=== PATIENT | female | born 1975 | race American Indian/Alaskan Native ===

== ENCOUNTER 2018-08-08 10:35 | Observation (INO) | payer BC, MEDICAID ==
--- NOTE | 2018-08-08 11:19 | Emergency Department Report ---
ED General Adult HPI - General Chief complaint: Recheck/Abnormal Lab/Rx Stated complaint: OFF BALANCE Time Seen by Provider: 08/08/18 10:57 Source: patient Mode of arrival: Wheelchair Limitations: No Limitations - Related Data Allergies Allergy/AdvReac Type Severity Reaction Status Date / Time No Known Allergies Allergy Unverified 08/08/18 10:46 ED Review of Systems ROS: Stated complaint: OFF BALANCE Other details as noted in HPI ED Past Medical Hx - Past Medical History Previous Medical History?: No - Surgical History Past Surgical History?: No - Social History Smoking Status: Never Smoker Substance Use Type: Alcohol ED Physical Exam - General Limitations: No Limitations General appearance: alert, in no apparent distress - Head Head exam: Present: atraumatic, normocephalic - Eye Eye exam: Present: normal appearance, PERRL Pupils: Present: normal accommodation - ENT ENT exam: Present: normal exam, normal orophraynx, mucous membranes moist - Neck Neck exam: Present: normal inspection, full ROM. Absent: lymphadenopathy - Respiratory Respiratory exam: Present: normal lung sounds bilaterally. Absent: respiratory distress - Cardiovascular Cardiovascular Exam: Present: regular rate, normal rhythm. Absent: systolic murmur, diastolic murmur, rubs, gallop - GI/Abdominal GI/Abdominal exam: Present: soft, normal bowel sounds. Absent: distended, tenderness, guarding, rebound, hyperactive bowel sounds, hypoactive bowel so unds, mass, bruit - Extremities Exam Extremities exam: Present: normal inspection, full ROM, normal capillary refill. Absent: pedal edema - Back Exam Back exam: Present: normal inspection - Neurological Exam Neurological exam: Present: alert, oriented X3, CN II-XII intact, normal gait, other (rhomberg neg. ) - Psychiatric Psychiatric exam: Present: normal affect, normal mood - Skin Skin exam: Present: warm, dry, intact, normal color. Absent: rash ED Course Vital Signs 08/08/18 10:46 Temperature 98.6 F Pulse Rate 105 H Respiratory 16 Rate Blood Pressure 148/77 O2 Sat by Pulse 97 Oximetry ED Medical Decision Making - Lab Data Result diagrams: 08/08/18 11:46 Critical care attestation.: If time is entered above; I have spent that time in minutes in the direct care of this critically ill patient, excluding procedure time. ED Disposition Condition: Stable Referrals: PRIMARY CARE, [Primary Care Provider] - 3-5 Days
[2018-08-08 11:55] LABS: Mean Corpuscular HGB Conc 29 % (30-34)
[2018-08-08 12:04] LABS: INR 1.02 (0.87-1.13)
[2018-08-08 12:07] LABS: Eosinophils % (Auto) 0.3 % (0.0-4.3); Monocytes % (Auto) 3.6 % (0.0-7.3); Platelet Count 289 K/mm3 (140-440); Red Blood Count 2.22 M/mm3 (3.65-5.03)
[2018-08-08 12:09] LABS: Hemoglobin 3.8 gm/dl (10.1-14.3); Mean Corpuscular Volume 59 fl (79-97)
[2018-08-08] MEDS ORDERED: NACL 0.9% 500 ML 500 ML IV ONE (12:09)
[2018-08-08 12:18] LABS: Alanine Aminotransferase 9 units/L (7-56); BUN/Creatinine Ratio 23; Blood Urea Nitrogen 14 mg/dL (7-17); Hemolysis Index 31
[2018-08-08 13:16] LABS: Basophils % (Manual) 0 % (0.0-1.8); Total Cells Counted 100
[2018-08-08 13:17] LABS: Anisocytosis 3+; Hypochromasia 3+; Macrocytosis 1+; Ovalocytes Few; Platelet Estimate Consistent w Auto; Poikilocytosis 1+; Tear Drop Cells Few
[2018-08-08] MEDS ORDERED: TYLENOL PO PRN (13:22)
[2018-08-08] MEDS ORDERED: ZOFRAN IV PRN (13:22)
[2018-08-08] MEDS ORDERED: NACL 0.9% 500 ML 500 ML IV NR (14:00)
[2018-08-08] MEDS ORDERED: COLACE PO PRN (14:00)
[2018-08-08] MEDS ORDERED: LACTATED RINGERS 1,000 ML IV SCH (14:00)
[2018-08-08] MEDS ORDERED: NACL 0.9% 250ML 250 ML ONE (17:20)
--- NOTE | 2018-08-08 20:02 | History and Physical Report ---
History of Present Illness Date of examination: 08/08/18 Date of admission: 08/08/18 13:22 Chief complaint: Dizziness History of present illness: Pt is a 43yo BF LMP 06/25/18 -08/06/18 presents to [facility] complaining of dizziness. She was evaluated and found to be severely anemic with an H/H of 3.8/13.0 She will therefore be admitted for a blood transfusion and evaluation of menorrhagia. She denies any medical problems, but has not seen a Optics Engineer in a while. Past History Past Medical History: no pertinent history Past Surgical History: no surgical history Family/Genetic History: none Social history: no significant social history, single Medications and Allergies Allergies Allergy/AdvReac Type Severity Reaction Status Date / Time No Known Allergies Allergy Unverified 08/08/18 10:46 Home Medications Medication Instructions Recorded Confirmed Last Taken Type Meclizine [Antivert] 25 mg PO Q8H PRN 08/08/18 08/08/18 08/08/18 History Active Meds: Active Medications Acetaminophen (Tylenol) 650 mg PO Q4H PRN PRN Reason: Pain MILD(1-3)/Fever >100.5/KAPADIA Docusate Sodium (Colace) 100 mg PO Q12H PRN PRN Reason: Constipation Ferrous Sulfate (Feosol) 325 mg PO BID PRABHA Lactated Ringer's (Lactated Ringers) 1,000 mls @ 125 mls/hr IV DIRECT PRABHA Multivitamins/Iron/Calcium ( Vitamin) 1 each PO QDAY PRABHA Ondansetron HCl (Zofran) 4 mg IV Q6H PRN PRN Reason: Nausea And Vomiting Review of Systems All systems: negative - Vital Signs Vital signs: Vital Signs Temp Pulse Resp BP Pulse Ox 98.6 F 105 H 16 148/77 97 08/08/18 10:46 08/08/18 10:46 08/08/18 10:46 08/08/18 10:46 08/08/18 10:46 Temp Pulse Resp BP Pulse Ox 98.9 F 101 H 18 174/86 94 08/08/18 18:20 08/08/18 18:20 08/08/18 18:20 08/08/18 18:20 08/08/18 14:16 - Physical Exam Cardiovascular: Regular rate Abdomen: Positive: normal appearance, soft Extremities: Positive: normal Results Result Diagrams: 08/09/18 05:58 08/08/18 11:46 Abnormal lab results 08/08/18 08/08/18 08/08/18 Range/Units 11:46 11:46 12:13 RBC 2.22 L (3.65-5.03) M/mm3 Hgb 3.8 L* (10.1-14.3) gm/dl Hct 13.0 L* (30.3-42.9) % MCV 59 L (79-97) fl MCH 17 L (28-32) pg MCHC 29 L (30-34) % RDW 24.0 H (13.2-15.2) % Seg Neutrophils % 81.5 H (40.0-70.0) % Seg Neuts % (Manual) 83.0 H (40.0-70.0) % Lymphocytes # (Manual) 0.8 L (1.2-5.4) K/mm3 Creatinine 0.6 L (0.7-1.2) mg/dL Crossmatch See Detail All other labs normal. Ultrasound: report reviewed Assessment and Plan - Patient Problems (1) Anemia Onset Date: ~08/08/18 Current Visit: Yes Status: Acute Qualifiers: Iron deficiency anemia type: chronic blood loss (2) Menorrhagia with regular cycle Onset Date: Unknown Current Visit: Yes Status: Acute Plan to address problem: A: Symptomatic anemia Menorrhagia P: Will admit for a blood transfusion Obtain a pelvic u/s Will follow up in the office for Pap and further evaluation
[2018-08-08] MEDS ORDERED: BENADRYL PO PRN (20:13)
[2018-08-08] MEDS: FEOSOL PO SCH (21:35)
[2018-08-08] MEDS: NORMODYNE PO SCH (21:36)
[2018-08-09 06:41] LABS: Hematocrit 23.5 % (30.3-42.9); Hemoglobin 7.6 gm/dl (10.1-14.3)
--- NOTE | 2018-08-09 06:53 | Ultrasound Report ---
FINAL REPORT PROCEDURE: TRANSVAGINAL US NON-OB TECHNIQUE: Real-time transvaginal sonography in multiple planes of the pelvis was performed with rupali ge documentation. Grayscale, color flow Doppler imaging and velocity spectral waveform analysis of th e ovaries was employed (duplex imaging). CPT 72933 and 66027 HISTORY: HX OF FIBROIDS COMPARISON: No prior studies are available for comparison. FINDINGS: UTERUS Size: 11.9 x 6.4 x 5.4 cm. Endometrial thickness: 9.6 mm. Orientation: anteverted. Cervix: Normal. There are nabothian cysts in the cervix. Fibroids/masses: There are 2 fibroids in the posterior body measuring 3.9 centimeters and 1.9 centime ters.. RIGHT Ovary: 5.9 x 4 x 5.0 cm. Appearance: There is a 3.8 centimeter cyst in the right ovary.. Doppler images: Normal spectral waveforms and color flow. The systolic and diastolic velocities are w ithin normal limits. LEFT Ovary: 2.4 x 1.5 x 1.2 cm. Appearance: Normal. Doppler images: Normal spectral waveforms and color flow. The systolic and diastolic velocities are w ithin normal limits. Pelvic fluid: None. IMPRESSION: There are uterine fibroids. There is a cyst in the right ovary. There is no evidence of ovarian torsi on.
--- NOTE | 2018-08-09 07:13 | Ultrasound Report ---
FINAL REPORT EXAM: US PELVIC COMPLETE HISTORY: uterine fibroids TECHNIQUE: Transabdominal imaging was obtained the pelvis including Doppler interrogation of the adn exa. FINDINGS: The uterus is anteverted and enlarged measuring 11.9 cm x 6.4 cm x 5.3 cm. There are 2 fibroids in th e posterior body of the uterus 1 measuring 3.9 cm x 2.2 cm x 1.6 cm. The other measures 1.9 cm x 1.8 cm x 1.6 cm. There are 2 small nabothian cysts in the cervix the larger measuring 1.2 cm in diameter. The endometrial thickness is 9.6 mm. Free fluid is not seen. The left ovary is normal size contour blood flow and echotexture measuring 2.4 cm x 1.5 cm x 1.2 cm. The right ovary is enlarged measuring 5.9 cm x 4 cm x 5 cm. Within the right ovary is an anechoic cys t measuring 3.8 cm x 3.1 cm x 3.7 cm. The blood flow is normal to the right ovary. IMPRESSION: Enlarged uterus with 2 fibroids in the posterior wall of the body uterus with measurements. Two nabothian cysts in the cervix. Functional cysts in the right ovary measuring 3.8 cm in diameter. No evidence of ovarian torsion.
--- NOTE | 2018-08-09 09:43 | Progress Note ---
Assessment and Plan - Patient Problems (1) Anemia Onset Date: ~08/08/18 Current Visit: Yes Status: Acute Qualifiers: Iron deficiency anemia type: chronic blood loss (2) Menorrhagia with regular cycle Onset Date: Unknown Current Visit: Yes Status: Acute Plan to address problem: A: Symptomatic anemia - improved Menorrhagia Uterine fibroids Hypertension P: May go home today Will follow up in the office for Pap and further evaluation Subjective - Subjective Date of service: 08/09/18 Principal diagnosis: Symptomatic anemia; Menorrhagia Interval history: Pt is feeling much better without complaints. She denies vaginal bleeding. Discussed results of pelvic u/s showing an enlarged uterus with 2 fibroids. Patient reports: appetite normal, voiding normally, flatus, ambulating normally, no dizzy ambulation, no nauseated Objective - Vital Signs Latest vital signs: Vital Signs Temp Pulse Resp Resp BP BP Pulse Ox 08/09/18 08:30 98.1 F 91 H 20 158/81 08/09/18 07:20 18 08/09/18 04:40 98.8 F 84 20 152/91 96 08/09/18 01:27 97.8 F 82 18 139/73 08/09/18 00:57 98.9 F 78 18 128/63 08/09/18 00:27 98.7 F 80 18 125/66 08/08/18 23:57 99.1 F 79 20 114/58 08/08/18 23:37 99.1 F 79 20 114/58 08/08/18 22:28 99.0 F 74 18 125/65 08/08/18 22:20 98.3 F 75 18 128/67 08/08/18 21:40 98.6 F 96 H 18 173/93 08/08/18 21:36 96 H 173/93 08/08/18 21:10 99.5 F 95 H 18 165/92 08/08/18 20:50 99.0 F 91 H 18 154/87 08/08/18 20:24 18 18 08/08/18 19:13 99.0 F 95 H 18 156/80 08/08/18 18:20 98.9 F 101 H 18 174/86 08/08/18 17:50 98.4 F 103 H 18 162/81 08/08/18 17:35 98.9 F 96 H 16 169/83 08/08/18 17:25 99.6 F 100 H 18 177/88 08/08/18 16:20 97.8 F 104 H 18 172/89 08/08/18 15:10 98.7 F 96 H 20 170/75 08/08/18 14:19 98.5 F 08/08/18 14:16 187/90 94 08/08/18 14:00 187/90 100 08/08/18 13:45 179/86 99 08/08/18 13:44 98.3 F 96 H 18 179/86 99 08/08/18 13:30 88 08/08/18 13:29 98.3 F 99 H 18 190/92 08/08/18 13:16 191/97 99 08/08/18 13:00 100 H 16 193/86 98 08/08/18 12:57 99 H 14 193/86 100 08/08/18 12:48 98 H 15 196/86 94 08/08/18 10:46 98.6 F 105 H 16 148/77 97 Intake and Output 08/08/18 08/09/18 08/09/18 22:59 06:59 14:59 Intake Total 630 490 120 Output Total 300 Balance 330 490 120 Intake: IV 10 Right Antecubital 10 Oral 120 240 120 Blood Product 500 250 Leukoreduced Red Blood 250 Cells Unit [id number] Leukoreduced Red Blood 250 Cells Unit [id number] Leukoreduced Red Blood 250 Cells Unit [id number] Leukoreduced Red Blood 0 Cells Unit [id number] Output: Urine 300 Void 300 Other: Total, Intake Amount 120 240 120 Total, Output Amount 300 # Voids Void 1 1 Weight 92.986 kg - Exam Cardiovascular: Present: Regular rate Lungs: Present: Clear to auscultation Abdomen: Present: normal appearance, soft - Labs Labs: Abnormal lab results 08/08/18 08/08/18 08/08/18 Range/Units 11:46 11:46 12:13 RBC 2.22 L (3.65-5.03) M/mm3 Hgb 3.8 L* (10.1-14.3) gm/dl Hct 13.0 L* (30.3-42.9) % MCV 59 L (79-97) fl MCH 17 L (28-32) pg MCHC 29 L (30-34) % RDW 24.0 H (13.2-15.2) % Seg Neutrophils % 81.5 H (40.0-70.0) % Seg Neuts % (Manual) 83.0 H (40.0-70.0) % Lymphocytes # (Manual) 0.8 L (1.2-5.4) K/mm3 Creatinine 0.6 L (0.7-1.2) mg/dL Crossmatch See Detail 08/09/18 Range/Units 05:58 RBC (3.65-5.03) M/mm3 Hgb 7.6 L D (10.1-14.3) gm/dl Hct 23.5 L D (30.3-42.9) % MCV (79-97) fl MCH (28-32) pg MCHC (30-34) % RDW (13.2-15.2) % Seg Neutrophils % (40.0-70.0) % Seg Neuts % (Manual) (40.0-70.0) % Lymphocytes # (Manual) (1.2-5.4) K/mm3 Creatinine (0.7-1.2) mg/dL Crossmatch
--- NOTE | 2018-08-09 09:45 | Discharge Summary ---
Providers - Providers Date of Admission: 08/08/18 13:22 Date of discharge: 08/09/18 Attending physician: GIGI BANDA 08/08/18 13:22 Consult to Dietitian/Nutrition [CONS] Routine Physician Instructions: Reason For Exam: Reason for Consult: Malnutrition Primary care physician: PARTS COUNTER SALES PERSON Hospitalization Reason for admission: other (Symptomatic anemia; Menorrhagia) Discharge diagnosis: other (Symptomatic anemia - resolved; Uterine fibroids; Menorrhagia) Hospital course: Pt is a 43yo BF LMP 06/25/18 -08/06/18 who presented to [facility] complaining of dizziness. She was evaluated and found to be severely anemic with an H/H of 3.8/13.0 She was admitted for a blood transfusion and her H/H improved to 7.6/23.5 She is currently feeling much better. A pelvic u/s showed she has uterine fibroids which will be further evaluated on an outpatient basis. Condition at discharge: Good Disposition: DC-01 TO HOME OR SELFCARE - Discharge Diagnoses (1) Anemia Status: Chronic Qualifiers: Iron deficiency anemia type: chronic blood loss (2) Menorrhagia with regular cycle Status: Chronic (3) Uterine fibroid Status: Chronic Qualifiers: Uterine leiomyoma location: intramural and subserous Qualified Code(s): D25.1 - Intramural leiomyoma of uterus; D25.2 - Subserosal leiomyoma of uterus Plan - Discharge Medications Prescriptions: Ferrous Sulfate [Feosol 325 MG tab] 325 mg PO BID #60 tablet Labetalol [Normodyne TAB] 200 mg PO BID #60 tablet - Provider Discharge Summary Activity: routine, no sex for 6 weeks, no heavy lifting 4 weeks, no strenuous exercise Diet: routine Instructions: routine Additional instructions: [] Smoking cessation referral if applicable(refer to patient education folder for contact #) [] Refer to [facility] Booklet Call your doctor immediately for: * Fever > 100.5 * Heavy vaginal bleeding ( >1 pad per hour) * Severe persistent headache * Shortness of breath * Reddened, hot, painful area to leg or breast * Drainage or odor from incision. * Keep incision clean and dry at all times and follow doctor's instructions regarding bathing/showering - Follow up plan Follow up: PRIMARY CARE, [Primary Care Provider] - 3-5 Days GIGI BANDA MD [Staff Physician] - 14 Days
[2018-08-09] MEDS ORDERED: PRENATAL VITAMIN PO SCH (10:00)
[2018-08-09] MEDS: FEOSOL PO SCH (10:07)
[2018-08-09] MEDS: NORMODYNE PO SCH (10:07)
[2018-08-09 11:32] VITALS: BP 145/80
== END 2018-08-09 10:30 | disposition home or self-care (01) ==
LOC: ED 10:35 → OB 13:22 → INTOOBSV 13:22
PROVIDERS: ADMIT Obstetrics & Gynecology; ATTEND Obstetrics & Gynecology
DX: D50.9 Iron deficiency anemia, unspecified (principal); N92.1 Excessive and frequent menstruation with irregular cycle; D25.1 Intramural leiomyoma of uterus; D25.2 Subserosal leiomyoma of uterus
CPT/HCPCS: 36415; 36430; 76830; 76856; 80053; 85007; 85014; 85018; 85025; 85610; 86850; 86900; 86901; 86920; 96360; 96361; 99285; G0378; J7040; J7050; J7120; P9016

== ENCOUNTER 2018-12-23 23:32 | Inpatient (IN) | payer BC, MEDICAID ==
[2018-12-24 00:21] LABS: Basophils % (Auto) 1.1 % (0.0-1.8); Eosinophils % (Auto) 0.6 % (0.0-4.3); Lymphocytes # (Auto) 0.7 K/mm3 (1.2-5.4); Lymphocytes % (Auto) 15.7 % (13.4-35.0); Mean Corpuscular HGB Conc 31 % (30-34); Monocytes # (Auto) 0.2 K/mm3 (0.0-0.8); Monocytes % (Auto) 4.5 % (0.0-7.3); Platelet Count 136 K/mm3 (140-440); Red Blood Count 1.72 M/mm3 (3.65-5.03)
[2018-12-24 00:27] LABS: Mean Corpuscular Volume 68 fl (79-97); Red Cell Distribution Width 21.3 % (13.2-15.2)
[2018-12-24 00:35] LABS: Hematocrit 11.8 % (30.3-42.9); Hemoglobin 3.7 gm/dl (10.1-14.3)
[2018-12-24] MEDS ORDERED: NACL 0.9% 500 ML 500 ML IV ONE (00:52)
--- NOTE | 2018-12-24 00:55 | Emergency Department Report ---
HPI - General Chief Complaint: Vaginal Bleeding Time Seen by Provider: 12/24/18 00:37 - HPI HPI: 43 yo AA female presents to the emergency department with complaint of some lightheadedness and dizziness for the past 2 days. The patient also has been dealing with some heavy vaginal bleeding and a prolonged menstrual cycle, which has been going on since December 08, more than 2 weeks ago. The patient has a history of requiring transfusions secondary to anemia, secondary to her vaginal bleeding, and was here for this in August of this year. 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 She has not taken anything for her symptoms prior to arrival. No recent travel or sick contacts at home. The patient also complains of a 2 day history of some lower extremity swelling. She denies any abdominal or pelvic pain, fever, nausea or vomiting. ED Past Medical Hx - Past Medical History Previous Medical History?: Yes Hx Congestive Heart Failure: No Hx Diabetes: No Hx Asthma: No Hx COPD: No Hx HIV: No Additional medical history: fibroids - Surgical History Past Surgical History?: No - Social History Smoking Status: Never Smoker - Medications Home Medications: Home Medications Medication Instructions Recorded Confirmed Last Taken Type Meclizine [Antivert] 25 mg PO Q8H PRN 08/08/18 08/08/18 08/08/18 History Ferrous Sulfate [Feosol 325 MG tab] 325 mg PO BID #60 tablet 08/09/18 Unknown Rx Labetalol [Labetalol 200mg TAB] 200 mg PO BID #60 tablet 08/09/18 Unknown Rx ED Review of Systems ROS: Stated complaint: LIGHT HEADED BLEEDING Other details as noted in HPI Constitutional: denies: chills, fever Eyes: denies: eye pain, vision change ENT: denies: ear pain, throat pain Respiratory: denies: cough, shortness of breath Cardiovascular: denies: chest pain, palpitations Gastrointestinal: denies: abdominal pain, vomiting Genitourinary: abnormal menses. denies: dysuria, discharge Musculoskeletal: denies: back pain, arthralgia Skin: denies: rash, lesions Neurological: other (lightheaded, dizzy). denies: headache Physical Exam - Physical Exam Vital Signs: Vital Signs 12/24/18 00:00 Temperature 97.9 F Pulse Rate 104 H Respiratory 18 Rate Blood Pressure 126/50 O2 Sat by Pulse 97 Oximetry Physical Exam: GENERAL: The patient is well-developed well-nourished. HENT: Normocephalic. Atraumatic. Patient has moist mucous membranes. EYES: Extraocular motions are intact. Pupils equal reactive to light bilaterally. Pale conjunctiva. NECK: Supple. Trachea is midline. CHEST/LUNGS: Clear to auscultation. There is no respiratory distress noted. HEART/CARDIOVASCULAR: Regular. There is mild tachycardia. There is no murmur. ABDOMEN: Abdomen is soft, nontender. Patient has normal bowel sounds. There is no abdominal distention. SKIN: Skin is warm and dry. NEURO: The patient is awake, alert, and oriented. The patient is cooperative. The patient has no focal neurologic deficits. The patient has normal speech. MUSCULOSKELETAL: There is no tenderness or deformity. There is no evidence of acute injury. ED Course Vital Signs 12/24/18 00:00 Temperature 97.9 F Pulse Rate 104 H Respiratory 18 Rate Blood Pressure 126/50 O2 Sat by Pulse 97 Oximetry ED Medical Decision Making - Lab Data Result diagrams: 12/24/18 00:07 12/24/18 00:54 - Medical Decision Making This patient presents to the emergency department with a complaint of some lightheadedness and/or dizziness. She's been dealing with an abnormal menstrual cycle with menorrhagia since December 08, greater than 2 weeks. She was found to have a hemoglobin of 3.7 which is most likely the reason for her current symptoms. The rest of her labs are mostly unremarkable. Vital signs stable throughout her ED course. 4 units of packed red blood cells have been ordered for transfusion. The patient will be admitted to the hospital to the CENTER MACHINE SET UP OPERATOR service for transfusion and further evaluation. She has been accepted for admission by the CENTER MACHINE SET UP OPERATOR hospice care sales consultant, Dr. Fleming. - Differential Diagnosis iron deficiency, menorrhagia, fibroids Critical Care Time: Yes Critical care time in (mins) excluding proc time.: 35 Critical care attestation.: If time is entered above; I have spent that time in minutes in the direct care of this critically ill patient, excluding procedure time. Critical care time was spent on this patient and doing her initial evaluation, multiple evaluations, ordering and interpretation of labs, ordering of blood transfusion, discussion with the CENTER MACHINE SET UP OPERATOR. Critical Care Time: 35 minutes ED Disposition Clinical Impression: Excessive and frequent menstruation with irregular cycle, Anemia requiring transfusions, Symptomatic anemia Uterine fibroid Qualifiers: Uterine leiomyoma location: intramural and subserous Qualified Code(s): D25.1 - Intramural leiomyoma of uterus; D25.2 - Subserosal leiomyoma of uterus Anemia Qualifiers: Iron deficiency anemia type: chronic blood loss Disposition: OP ADMIT IP TO THIS HOSP Is pt being admited?: Yes Condition: Serious Time of Disposition: 03:56
[2018-12-24 01:36] LABS: INR 0.96 (0.87-1.13)
[2018-12-24 01:45] LABS: Alanine Aminotransferase 9 units/L (7-56); Albumin 3.5 g/dL (3.9-5); Calcium 9.2 mg/dL (8.4-10.2); Hemolysis Index 1
[2018-12-24] MEDS ORDERED: NACL 0.9% 500 ML 500 ML ONE ×2 (02:53→12:15)
--- NOTE | 2018-12-24 02:53 | History and Physical Report ---
History of Present Illness Date of examination: 12/24/18 Chief complaint: Lightheadedness and dizziness History of present illness: 43 yo AA female presents to the emergency department with complaint of some lightheadedness and dizziness for the past 2 days. The patient also has been de aling with some heavy vaginal bleeding and a prolonged menstrual cycle, which has been going on since December 08, more than 2 weeks ago. The patient has a history of requiring transfusions secondary to anemia, secondary to her vaginal bleeding, and was here for this in August of this year. 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 She has not had an evaluation as recommended at her last admission. She experiences heavy bleeding for 5/7days with her period in which she saturates 3 pads/hr on her heaviest days. States her periods were "regular" until 06/2018 when she had prolonged heavy bleeding that stopped 08/2018. Periods became regular again until 12/08/2018 when again she had prolong heavy bleeding until today. She has not taken anything for her symptoms prior to arrival. No recent travel or sick contacts at home. She denies any abdominal or pelvic pain, fever, nausea or vomiting. 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 denies: abnormal PAP smear, chlamydia, gonorrhea, hepatitis B, hepatitis C, herpes Social history: no significant social history. denies: smoking, alcohol abuse, prescription drug abuse, IV drug use - Obstetrical History : 4 Para: 4 Number of Living Children: 4 ( x4) Medications and Allergies Allergies Allergy/AdvReac Type Severity Reaction Status Date / Time No Known Allergies Allergy Unverified 08/08/18 10:46 Home Medications Medication Instructions Recorded Confirmed Last Taken Type Meclizine [Antivert] 25 mg PO Q8H PRN 08/08/18 08/08/18 08/08/18 History Ferrous Sulfate [Feosol 325 MG tab] 325 mg PO BID #60 tablet 08/09/18 Unknown Rx Labetalol [Labetalol 200mg TAB] 200 mg PO BID #60 tablet 08/09/18 Unknown Rx Review of Systems All systems: negative - Vital Signs Vital signs: Vital Signs Temp Pulse Resp BP Pulse Ox 97.9 F 104 H 18 126/50 96 12/23/18 23:46 12/23/18 23:46 12/23/18 23:46 12/23/18 23:46 12/23/18 23:46 Temp Pulse Resp BP Pulse Ox 97.9 F 100 H 18 132/63 97 12/24/18 00:00 12/24/18 01:45 12/24/18 02:19 12/24/18 01:45 12/24/18 01:45 - Physical Exam Breasts: Positive: deferred Lungs: Positive: Normal air movement Abdomen: Positive: soft, other (obese). Negative: distention, tenderness, guarding Genitourinary (Female): Positive: normal external genitalia, normal perenium Vulva: both: normal Cervix: Positive: other Uterus: Positive: other (unable to palpate, small blood in vagina,dark, adnexa nontender, unable to palpate) Anus/Rectum: Positive: normal perianal skin Extremities: Positive: edema (trace) Results Result Diagrams: 12/24/18 00:07 12/24/18 00:54 Abnormal lab results 12/24/18 12/24/18 12/24/18 Range/Units 00:07 00:52 00:54 WBC 4.3 L (4.5-11.0) K/mm3 RBC 1.72 L (3.65-5.03) M/mm3 Hgb 3.7 L* (10.1-14.3) gm/dl Hct 11.8 L* (30.3-42.9) % MCV 68 L (79-97) fl MCH 21 L (28-32) pg RDW 21.3 H (13.2-15.2) % Plt Count 136 L (140-440) K/mm3 Lymph # 0.7 L (1.2-5.4) K/mm3 Seg Neutrophils % 78.1 H (40.0-70.0) % Glucose 129 H (65-100) mg/dL Total Protein 5.7 L (6.3-8.2) g/dL Albumin 3.5 L (3.9-5) g/dL Crossmatch See Detail All other labs normal. Assessment and Plan - Patient Problems (1) Excessive and frequent menstruation with irregular cycle Current Visit: Yes Status: Chronic (2) Anemia Onset Date: ~08/08/18 Current Visit: No Status: Chronic Qualifiers: Iron deficiency anemia type: chronic blood loss Plan to address problem: Patient is stable, will admitted again for transfusion and provera therapy. Questions enocuraged and answered, she voiced understanding and agrees with plan of care (3) Uterine fibroid Current Visit: No Status: Chronic Qualifiers: Uterine leiomyoma location: intramural and subserous Qualified Code(s): D25.1 - Intramural leiomyoma of uterus; D25.2 - Subserosal leiomyoma of uterus
[2018-12-24] MEDS ORDERED: BENADRYL PO ONE ×2 (03:11→03:34)
[2018-12-24] MEDS ORDERED: TYLENOL PO ONE (03:13)
[2018-12-24 03:20] LABS: Bacteria,Urine 1+ /HPF (Negative); Bilirubin,Urine NEG (Negative); Blood,Urine LG (Negative); Color,Urine Yellow (Yellow); Mucus,Urine FEW /HPF; Protein,Urine <15 mg/dL mg/dL (Negative); Urobilinogen,Urine < 2.0 mg/dL (<2.0)
[2018-12-24 03:21] LABS: HCG Qualitative,Urine Negative (Negative)
[2018-12-24] MEDS ORDERED: BENADRYL ONE (03:31)
[2018-12-24 03:44] LABS: BUN/Creatinine Ratio 24; Blood Urea Nitrogen 17 mg/dL (7-17)
[2018-12-24] MEDS ORDERED: LACTATED RINGERS 1,000 ML IV SCH (04:00)
[2018-12-24] MEDS ORDERED: PRENATAL VITAMIN PO SCH (10:00)
[2018-12-24] MEDS ORDERED: PROVERA PO SCH (10:00)
[2018-12-24 11:24] LABS: Basophils % (Auto) 1.4 % (0.0-1.8); Eosinophils % (Auto) 0.1 % (0.0-4.3); Hematocrit 21.1 % (30.3-42.9); Hemoglobin 6.8 gm/dl (10.1-14.3); Lymphocytes # (Auto) 0.8 K/mm3 (1.2-5.4); Lymphocytes % (Auto) 22.7 % (13.4-35.0); Mean Corpuscular HGB Conc 32 % (30-34); Mean Corpuscular Volume 77 fl (79-97); Monocytes # (Auto) 0.2 K/mm3 (0.0-0.8); Monocytes % (Auto) 6.3 % (0.0-7.3); Platelet Count 146 K/mm3 (140-440); Red Blood Count 2.74 M/mm3 (3.65-5.03)
[2018-12-24 11:25] LABS: Red Cell Distribution Width 22.9 % (13.2-15.2)
[2018-12-24] MEDS ORDERED: NACL 0.9% 250ML 250 ML ONE (16:01)
[2018-12-24 20:28] LABS: Hematocrit 26.5 % (30.3-42.9); Hemoglobin 8.8 gm/dl (10.1-14.3)
[2018-12-24 21:03] VITALS: BP 152/81
--- NOTE | 2018-12-24 21:35 | Short Stay Summary ---
Short Stay Documentation Date of service: 12/24/18 - History H&P: dictated Social history: no significant social history, no smoking, no alcohol abuse, no prescription drug abuse, no IV drug use - Allergies and Medications Current Medications: Allergies No Known Allergies Allergy (Unverified 08/08/18 10:46) Home Medications Medication Instructions Recorded Confirmed Last Taken Type medroxyPROGESTERone ACETATE 10 mg PO QDAY #10 tablet 12/24/18 Unknown Rx [Provera] Active Medications Lactated Ringer's (Lactated Ringers) 1,000 mls @ 125 mls/hr IV DIRECT [facility] Medroxyprogesterone Acetate (Provera) 10 mg PO QDAY [facility] Last Admin: 12/24/18 11:32 Dose: 10 mg Documented by: Multivitamins/Iron/Calcium ( Vitamin) 1 each PO QDAY [facility] Last Admin: 12/24/18 11:32 Dose: 1 each Documented by: - Physical exam Breasts: deferred - Hospital course Hospital course: Patiient with her bleeding decreased She received 4 units of PRBC her hgb increased from 3.7 to 8.8 Patient without orthostatic symptoms. Patient discharged with Provera f/u in 2weeks in our office or human factors specialist of her choice - Disposition Condition at discharge: Good Disposition: DC-01 TO HOME OR SELFCARE - Discharge Diagnoses (1) Anemia requiring transfusions Status: Acute (2) Uterine fibroid Status: Chronic Qualifiers: Uterine leiomyoma location: intramural Qualified Code(s): D25.1 - Intramural leiomyoma of uterus (3) Menorrhagia with regular cycle Status: Chronic Short Stay Discharge Plan Activity: advance as tolerated Diet: regular Follow up with: SNEHAL VAIL MD [Primary Care Provider] - 3-5 Days Prescriptions: medroxyPROGESTERone ACETATE [Provera] 10 mg PO QDAY #10 tablet
== END 2018-12-24 20:35 | disposition home or self-care (01) | DRG 761 ==
LOC: ED 23:32 → OB 12-24 03:11 → 4A 12-24 10:18 → OB 12-24 13:16
PROVIDERS: ADMIT Obstetrics & Gynecology; ATTEND Obstetrics & Gynecology
PROC: 30233N1 Transfusion of Nonautologous Red Blood Cells into Peripheral Vein, Percutaneous Approach (ICD-10-PCS; principal; 2018-12-24)
DX: D25.1 Intramural leiomyoma of uterus (principal); N92.0 Excessive and frequent menstruation with regular cycle; D50.0 Iron deficiency anemia secondary to blood loss (chronic); Z79.899 Other long term (current) drug therapy
CPT/HCPCS: 36415; 80053; 81001; 81025; 84703; 85014; 85018; 85025; 85610; 85730; 86850; 86900; 86901; 86920; G0378; J1200; J7040; J7050; P9016

== ENCOUNTER 2019-03-19 13:18 | Observation (INO) | payer BC, MEDICAID ==
--- NOTE | 2019-03-19 13:27 | Emergency Department Report ---
Blank Doc - Documentation Documentation: 43-year-old female that was sent by PCP for hemoglobin of 5. This initial assessment/diagnostic orders/clinical plan/treatment(s) is/are subject to change based on patient's health status, clinical progression and re- assessment by fellow clinical providers in the ED. Further treatment and workup at subsequent clinical providers discretion. Patient/guardians urged not to elope from the ED as their condition may be serious if not clinically assessed and managed. Initial orders include: 1- Patient sent to MAIN ED for further evaluation and treatment 2- labs
[2019-03-19 14:28] LABS: BUN/Creatinine Ratio 21; Blood Urea Nitrogen 15 mg/dL (7-17); Calcium 8.8 mg/dL (8.4-10.2); Hemolysis Index 0
[2019-03-19 14:33] LABS: Mean Corpuscular HGB Conc 29 % (30-34); Platelet Count 123 K/mm3 (140-440); Red Blood Count 2.24 M/mm3 (3.65-5.03)
[2019-03-19 14:39] LABS: Hemoglobin 4.2 gm/dl (10.1-14.3); Mean Corpuscular Volume 65 fl (79-97); Red Cell Distribution Width 26.9 % (13.2-15.2)
[2019-03-19 14:40] LABS: Hematocrit 14.5 % (30.3-42.9)
[2019-03-19 14:41] LABS: Eosinophils % (Auto) 0.3 % (0.0-4.3); Monocytes # (Auto) 0.1 K/mm3 (0.0-0.8)
[2019-03-19 15:36] LABS: Basophils % (Manual) 0 % (0.0-1.8); Eosinophils % (Manual) 0 % (0.0-4.3); Total Cells Counted 100
[2019-03-19 15:38] LABS: Anisocytosis 2+; Large Platelets Few; Platelet Estimate Consistent w Auto
[2019-03-19 15:39] LABS: Helmet Cells Rare; Hypochromasia 2+; Tear Drop Cells Few
[2019-03-19] MEDS ORDERED: NACL 0.9% 500 ML 500 ML IV ONE (16:38)
[2019-03-19 17:35] LABS: INR 1.15 (0.87-1.13)
[2019-03-19 17:36] LABS: Partial Thromboplastin Time 26.1 Sec. (24.2-36.6)
--- NOTE | 2019-03-19 18:01 | Emergency Department Report ---
ED General Adult HPI - General Chief complaint: Recheck/Abnormal Lab/Rx Stated complaint: LOW BLOOD COUNT Time Seen by Provider: 03/19/19 13:25 Source: patient Mode of arrival: Ambulatory Limitations: No Limitations - History of Present Illness Initial comments: This is a 43-year-old female with a history of multiple transfusions for dysfunctional uterine bleeding/fibroids. She states that she was told her hemoglobin was low and she was sent here for transfusion. She does not complain of shortness of breath chest pain or significant weakness. She states that she has been vaginal bleeding which is not significant at this time. Apparently hysterectomy has been advised in the past. She states her last transfusion was about 3 months ago. She appears be remarkably well compensated considering how low her hemoglobin is. -: Gradual, month(s) Severity scale (0 -10): 0 Associated Symptoms: denies other symptoms - Related Data Home Medications Medication Instructions Recorded Confirmed Last Taken Labetalol [Labetalol 200mg TAB] 200 mg PO QDAY 03/19/19 03/19/19 03/16/19 Allergies Allergy/AdvReac Type Severity Reaction Status Date / Time No Known Allergies Allergy Verified 03/19/19 13:22 ED Review of Systems ROS: Stated complaint: LOW BLOOD COUNT Other details as noted in HPI Comment: All other systems reviewed and negative (patient tends to minimize her symptoms. I can't imagine she has not dyspneic on exertion but she does not admit this or even weakness.) Genitourinary: abnormal menses (chronic vaginal bleeding) ED Past Medical Hx - Past Medical History Previous Medical History?: Yes Hx Congestive Heart Failure: No Hx Diabetes: No Hx Asthma: No Hx COPD: No Hx HIV: No Additional medical history: fibroids, hyperthyroidism - Surgical History Past Surgical History?: No - Social History Smoking Status: Never Smoker Substance Use Type: None - Medications Home Medications: Home Medications Medication Instructions Recorded Confirmed Last Taken Type Labetalol [Labetalol 200mg TAB] 200 mg PO QDAY 03/19/19 03/19/19 03/16/19 History ED Physical Exam - General Limitations: No Limitations General appearance: alert, in no apparent distress, other (pale) - Head Head exam: Present: atraumatic, normocephalic - Eye Eye exam: Present: normal appearance. Absent: scleral icterus - ENT ENT exam: Present: mucous membranes moist - Neck Neck exam: Present: normal inspection. Absent: tenderness, meningismus - Respiratory Respiratory exam: Present: normal lung sounds bilaterally. Absent: respiratory distress - Cardiovascular Cardiovascular Exam: Present: regular rate, normal rhythm. Absent: systolic murmur, diastolic murmur, rubs, gallop - GI/Abdominal GI/Abdominal exam: Present: soft, normal bowel sounds. Absent: distended, tenderness, guarding, rebound, rigid - Extremities Exam Extremities exam: Present: normal inspection, normal capillary refill. Absent: calf tenderness - Back Exam Back exam: Present: normal inspection - Neurological Exam Neurological exam: Present: alert, oriented X3, CN II-XII intact. Absent: motor sensory deficit - Psychiatric Psychiatric exam: Present: normal affect, normal mood - Skin Skin exam: Present: warm, dry, intact, normal color. Absent: rash ED Course Vital Signs 03/19/19 03/19/19 03/19/19 13:24 15:22 15:24 Temperature 97.9 F 97.6 F Pulse Rate 104 H 84 Respiratory 18 16 13 Rate Blood Pressure 127/72 Blood Pressure 156/75 [Left] O2 Sat by Pulse 100 100 100 Oximetry 03/19/19 03/19/19 17:26 17:39 Temperature 98.1 F 97.6 F Pulse Rate 98 H 94 H Respiratory 18 18 Rate Blood Pressure 161/73 163/82 Blood Pressure [Left] O2 Sat by Pulse 100 100 Oximetry - Reevaluation(s) Reevaluation #1: I alerted the blood bank of the urgency of the transfusion. I also informed the nurse. Patient will be admitted by Dr. Muhammad for further care and evaluation. 03/19/19 18:00 ED Medical Decision Making - Lab Data Result diagrams: 03/19/19 13:49 03/19/19 13:49 Laboratory Results - last 24 hr 03/19/19 03/19/19 03/19/19 13:45 13:49 13:49 WBC 3.3 L RBC 2.24 L Hgb 4.2 L* Hct 14.5 L* MCV 65 L MCH 19 L MCHC 29 L RDW 26.9 H Plt Count 123 L [place] % (Auto) 4.0 Eos % (Auto) 0.3 [place] # 0.1 Eos # 0.0 Baso # 0.0 Add Manual Diff Complete Total Counted 100 Seg Neutrophils % 76.5 H Seg Neuts % (Manual) 58.0 Band Neutrophils % 0 Lymphocytes % (Manual) 37.0 H Reactive Lymphs % (Man) 0 Monocytes % (Manual) 5.0 Eosinophils % (Manual) 0 Basophils % (Manual) 0 Metamyelocytes % 0 Myelocytes % 0 Promyelocytes % 0 Blast Cells % 0 Nucleated RBC % Not Reportable Seg Neutrophils # 2.6 Seg Neutrophils # Man 1.9 Band Neutrophils # 0.0 Lymphocytes # (Manual) 1.2 Abs React Lymphs (Man) 0.0 Monocytes # (Manual) 0.2 Eosinophils # (Manual) 0.0 Basophils # (Manual) 0.0 Metamyelocytes # 0.0 Myelocytes # 0.0 Promyelocytes # 0.0 Blast Cells # 0.0 WBC Morphology Not Reportable Hypersegmented Neuts Not Reportable Hyposegmented Neuts Not Reportable Hypogranular Neuts Not Reportable Smudge Cells Not Reportable Toxic Granulation Not Reportable Toxic Vacuolation Not Reportable Dohle Bodies Not Reportable Pelger-Huet Anomaly Not Reportable Jaison Rods Not Reportable Platelet Estimate Consistent w auto Clumped Platelets Not Reportable Plt Clumps, EDTA Not Reportable Large Platelets Few Giant Platelets Not Reportable Platelet Satelliting Not Reportable Plt Morphology Comment Not Reportable RBC Morphology Not Reportable Dimorphic RBCs Not Reportable Polychromasia 1+ Hypochromasia 2+ Poikilocytosis Not Reportable Anisocytosis 2+ Microcytosis 1+ Macrocytosis Not Reportable Spherocytes Not Reportable Pappenheimer Bodies Not Reportable Sickle Cells Not Reportable Target Cells Not Reportable Tear Drop Cells Few Ovalocytes Not Reportable Helmet Cells Rare Ziegler-[place] Bodies Not Reportable [place] Rings Not Reportable Bishop Cells Not Reportable Bite Cells Not Reportable Crenated Cell Not Reportable Elliptocytes 1+ Acanthocytes (Spur) Not Reportable Rouleaux Not Reportable Hemoglobin C Crystals Not Reportable Schistocytes Not Reportable Malaria parasites Not Reportable Percent Retic Justin Bodies Not Reportable Hem Pathologist Commnt No PT INR APTT Sodium 141 Potassium 4.0 Chloride 104.4 Carbon Dioxide 27 Anion Gap 14 BUN 15 Creatinine 0.7 Estimated GFR > 60 BUN/Creatinine Ratio 21 Glucose 103 H Calcium 8.8 Iron TIBC NT-Pro-B Natriuret Pep Vitamin B12 Folate Blood Type A POSITIVE Antibody Screen Negative Crossmatch See Detail 03/19/19 03/19/19 03/19/19 16:52 16:52 16:52 WBC RBC Hgb Hct MCV MCH MCHC RDW Plt Count [place] % (Auto) Eos % (Auto) [place] # Eos # Baso # Add Manual Diff Total Counted Seg Neutrophils % Seg Neuts % (Manual) Band Neutrophils % Lymphocytes % (Manual) Reactive Lymphs % (Man) Monocytes % (Manual) Eosinophils % (Manual) Basophils % (Manual) Metamyelocytes % Myelocytes % Promyelocytes % Blast Cells % Nucleated RBC % Seg Neutrophils # Seg Neutrophils # Man Band Neutrophils # Lymphocytes # (Manual) Abs React Lymphs (Man) Monocytes # (Manual) Eosinophils # (Manual) Basophils # (Manual) Metamyelocytes # Myelocytes # Promyelocytes # Blast Cells # WBC Morphology Hypersegmented Neuts Hyposegmented Neuts Hypogranular Neuts Smudge Cells Toxic Granulation Toxic Vacuolation Dohle Bodies Pelger-Huet Anomaly Jaison Rods Platelet Estimate Clumped Platelets Plt Clumps, EDTA Large Platelets Giant Platelets Platelet Satelliting Plt Morphology Comment RBC Morphology Dimorphic RBCs Polychromasia Hypochromasia Poikilocytosis Anisocytosis Microcytosis Macrocytosis Spherocytes Pappenheimer Bodies Sickle Cells Target Cells Tear Drop Cells Ovalocytes Helmet Cells Ziegler-[place] Bodies [place] Rings Bishop Cells Bite Cells Crenated Cell Elliptocytes Acanthocytes (Spur) Rouleaux Hemoglobin C Crystals Schistocytes Malaria parasites Percent Retic 10.00 H Justin Bodies Hem Pathologist Commnt PT 14.4 INR 1.15 H APTT 26.1 Sodium Potassium Chloride Carbon Dioxide Anion Gap BUN Creatinine Estimated GFR BUN/Creatinine Ratio Glucose Calcium Iron 15 L TIBC 455 H NT-Pro-B Natriuret Pep 84.26 Vitamin B12 Folate Blood Type Antibody Screen Crossmatch 03/19/19 03/19/19 16:52 16:52 WBC RBC Hgb Hct MCV MCH MCHC RDW Plt Count [place] % (Auto) Eos % (Auto) [place] # Eos # Baso # Add Manual Diff Total Counted Seg Neutrophils % Seg Neuts % (Manual) Band Neutrophils % Lymphocytes % (Manual) Reactive Lymphs % (Man) Monocytes % (Manual) Eosinophils % (Manual) Basophils % (Manual) Metamyelocytes % Myelocytes % Promyelocytes % Blast Cells % Nucleated RBC % Seg Neutrophils # Seg Neutrophils # Man Band Neutrophils # Lymphocytes # (Manual) Abs React Lymphs (Man) Monocytes # (Manual) Eosinophils # (Manual) Basophils # (Manual) Metamyelocytes # Myelocytes # Promyelocytes # Blast Cells # WBC Morphology Hypersegmented Neuts Hyposegmented Neuts Hypogranular Neuts Smudge Cells Toxic Granulation Toxic Vacuolation Dohle Bodies Pelger-Huet Anomaly Jaison Rods Platelet Estimate Clumped Platelets Plt Clumps, EDTA Large Platelets Giant Platelets Platelet Satelliting Plt Morphology Comment RBC Morphology Dimorphic RBCs Polychromasia Hypochromasia Poikilocytosis Anisocytosis Microcytosis Macrocytosis Spherocytes Pappenheimer Bodies Sickle Cells Target Cells Tear Drop Cells Ovalocytes Helmet Cells Ziegler-[place] Bodies [place] Rings Bishop Cells Bite Cells Crenated Cell Elliptocytes Acanthocytes (Spur) Rouleaux Hemoglobin C Crystals Schistocytes Malaria parasites Percent Retic Justin Bodies Hem Pathologist Commnt PT INR APTT Sodium Potassium Chloride Carbon Dioxide Anion Gap BUN Creatinine Estimated GFR BUN/Creatinine Ratio Glucose Calcium Iron TIBC NT-Pro-B Natriuret Pep Vitamin B12 716.9 Folate 17.50 Blood Type Antibody Screen Crossmatch Critical care attestation.: If time is entered above; I have spent that time in minutes in the direct care of this critically ill patient, excluding procedure time. ED Disposition Clinical Impression: Severe anemia, Thrombocytopenia, Anemia requiring transfusions, Symptomatic anemia, Dysfunctional uterine bleeding Leukopenia Qualifiers: Leukopenia type: unspecified Qualified Code(s): D72.819 - Decreased white blood cell count, unspecified Uterine fibroid Qualifiers: Uterine leiomyoma location: unspecified location Qualified Code(s): D25.9 - Leiomyoma of uterus, unspecified Disposition: OP ADMIT IP TO THIS HOSP Is pt being admited?: Yes Does the pt Need Aspirin: No Condition: Stable Referrals: PRIMARY CAREMD [Referring] - 3-5 Days Time of Disposition: 18:02
[2019-03-19] MEDS ORDERED: NACL 0.9% 500 ML 500 ML IV NR (21:45)
[2019-03-19] MEDS ORDERED: ZOFRAN IV PRN (21:46)
[2019-03-19] MEDS ORDERED: PERCOCET 5/325 PO PRN (21:46)
[2019-03-19] MEDS ORDERED: TYLENOL PO PRN (21:46)
[2019-03-19] MEDS ORDERED: SODIUM CHLORIDE FLUSH SYRINGE 10 ML IV PRN (21:46)
[2019-03-19] MEDS ORDERED: DILAUDID IV PRN (21:46)
--- NOTE | 2019-03-19 21:57 | History and Physical Report ---
History of Present Illness Date of examination: 03/19/19 Date of admission: 03/19/19 18:04 Chief complaint: Very Low hemoglobin count. History of present illness: 43-year-old female with a history of multiple transfusions for dysfunctional uterine bleeding/fibroids comes in for low Hemoglobin.She was sent here for transfusion. She does not complain of shortness of breath chest pain or significant weakness. She states that she has been vaginal bleeding which is not significant at this time. Apparently hysterectomy has been advised in the past. She states her last transfusion was about 3 months ago. She appears be remarkably well compensated considering how low her hemoglobin is.Her menstrual periods last from 7 to 10 days.Heavy menstrual periods.Interested in getting Uterine artery embolization. Past Medical History Previous Medical History?: Yes Fibroids Surgical History Past Surgical History?: No Social History Smoking Status: Never Smoker Substance Use Type: None Family History Htn Medications Home Medications: Home Medications Medication Instructions Recorded Confirmed Last Taken Type Labetalol [Labetalol 200mg TAB] 200 mg PO QDAY 03/19/19 03/19/19 03/16/19 History Review of Systems ROS: Stated complaint: LOW BLOOD COUNT Other details as noted in HPI Comment: All other systems reviewed and negative (patient tends to minimize her symptoms. I can't imagine she has not dyspneic on exertion but she does not admit this or even weakness.) Genitourinary: abnormal menses (chronic vaginal bleeding) Sob on minimal exertion. Occasional light headedness Medications and Allergies Allergies Allergy/AdvReac Type Severity Reaction Status Date / Time No Known Allergies Allergy Verified 03/19/19 13:22 Home Medications Medication Instructions Recorded Confirmed Last Taken Type Labetalol [Labetalol 200mg TAB] 200 mg PO QDAY 03/19/19 03/19/19 03/16/19 History Active Meds: Active Medications Acetaminophen (Tylenol) 650 mg PO Q4H PRN PRN Reason: Pain MILD(1-3)/Fever >100.5/KAPADIA Famotidine (Pepcid) 20 mg IV BID PRABHA Hydromorphone HCl (Dilaudid) 0.5 mg IV Q3H PRN PRN Reason: Pain , Severe (7-10) Sodium Chloride (Nacl 0.9% 500 Ml) 500 mls @ 0 mls/hr IV ONCE ONE Stop: 03/19/19 21:46 Ondansetron HCl (Zofran) 4 mg IV Q8H PRN PRN Reason: Nausea And Vomiting Oxycodone/Acetaminophen (Percocet 5/325) 1 tab PO Q6H PRN PRN Reason: Pain, Moderate (4-6) Sodium Chloride (Sodium Chloride Flush Syringe 10 Ml) 10 ml IV BID PRABHA Sodium Chloride (Sodium Chloride Flush Syringe 10 Ml) 10 ml IV PRN PRN PRN Reason: LINE FLUSH Exam - Constitutional Vitals: Temp Pulse Resp BP Pulse Ox 99.1 F 96 H 18 131/86 98 03/19/19 21:27 03/19/19 21:27 03/19/19 21:27 03/19/19 21:27 03/19/19 21:27 General appearance: Present: no acute distress, well-nourished - EENT Eyes: Present: PERRL ENT: hearing intact, clear oral mucosa, other (pale conjunctiva) - Neck Neck: Present: supple, normal ROM - Respiratory Respiratory effort: normal Respiratory: bilateral: CTA - Cardiovascular Heart rate: 90 Rhythm: regular Heart Sounds: Present: S1 & S2. Absent: rub, click - Extremities Extremities: no ischemia, pulses intact, pulses symmetrical, No edema Peripheral Pulses: within normal limits - Abdominal General gastrointestinal: Present: soft, non-tender, non-distended, normal bowel sounds Female genitourinary: Present: normal - Rectal Rectal Exam: deferred - Integumentary Integumentary: Present: clear, warm, dry - Musculoskeletal Musculoskeletal: gait normal, strength equal bilaterally - Psychiatric Psychiatric: appropriate mood/affect, intact judgment & insight - Neurologic Neurologic: CNII-XII intact, moves all extremities - Allied Health Allied health notes reviewed: nursing, case management Results - Labs CBC & Chem 7: 03/19/19 13:49 03/19/19 13:49 Labs: Laboratory Last Values WBC 3.3 K/mm3 (4.5-11.0) L 03/19/19 13:49 RBC 2.24 M/mm3 (3.65-5.03) L 03/19/19 13:49 Hgb 4.2 gm/dl (10.1-14.3) L* 03/19/19 13:49 Hct 14.5 % (30.3-42.9) L* 03/19/19 13:49 MCV 65 fl (79-97) L 03/19/19 13:49 MCH 19 pg (28-32) L 03/19/19 13:49 MCHC 29 % (30-34) L 03/19/19 13:49 RDW 26.9 % (13.2-15.2) H 03/19/19 13:49 Plt Count 123 K/mm3 (140-440) L 03/19/19 13:49 [place] % (Auto) 4.0 % (0.0-7.3) 03/19/19 13:49 Eos % (Auto) 0.3 % (0.0-4.3) 03/19/19 13:49 [place] # 0.1 K/mm3 (0.0-0.8) 03/19/19 13:49 Eos # 0.0 K/mm3 (0.0-0.4) 03/19/19 13:49 Baso # 0.0 K/mm3 (0.0-0.1) 03/19/19 13:49 Add Manual Diff Complete 03/19/19 13:49 Total Counted 100 03/19/19 13:49 Seg Neutrophils % 76.5 % (40.0-70.0) H 03/19/19 13:49 Seg Neuts % (Manual) 58.0 % (40.0-70.0) 03/19/19 13:49 0 % 03/19/19 13:49 37.0 % (13.4-35.0) H 03/19/19 13:49 Reactive Lymphs % (Man) 0 % 03/19/19 13:49 5.0 % (0.0-7.3) 03/19/19 13:49 0 % (0.0-4.3) 03/19/19 13:49 0 % (0.0-1.8) 03/19/19 13:49 0 % 03/19/19 13:49 0 % 03/19/19 13:49 0 % 03/19/19 13:49 0 % 03/19/19 13:49 Nucleated RBC % Not Reportable 03/19/19 13:49 Seg Neutrophils # 2.6 K/mm3 (1.8-7.7) 03/19/19 13:49 Seg Neutrophils # Man 1.9 K/mm3 (1.8-7.7) 03/19/19 13:49 Band Neutrophils # 0.0 K/mm3 03/19/19 13:49 1.2 K/mm3 (1.2-5.4) 03/19/19 13:49 Abs React Lymphs (Man) 0.0 K/mm3 03/19/19 13:49 0.2 K/mm3 (0.0-0.8) 03/19/19 13:49 0.0 K/mm3 (0.0-0.4) 03/19/19 13:49 0.0 K/mm3 (0.0-0.1) 03/19/19 13:49 0.0 K/mm3 03/19/19 13:49 0.0 K/mm3 03/19/19 13:49 0.0 K/mm3 03/19/19 13:49 Blast Cells # 0.0 K/mm3 03/19/19 13:49 WBC Morphology Not Reportable 03/19/19 13:49 Hypersegmented Neuts Not Reportable 03/19/19 13:49 Hyposegmented Neuts Not Reportable 03/19/19 13:49 Hypogranular Neuts Not Reportable 03/19/19 13:49 Not Reportable 03/19/19 13:49 Not Reportable 03/19/19 13:49 Not Reportable 03/19/19 13:49 Not Reportable 03/19/19 13:49 Not Reportable 03/19/19 13:49 Not Reportable 03/19/19 13:49 Consistent w auto 03/19/19 13:49 Not Reportable 03/19/19 13:49 Plt Clumps, EDTA Not Reportable 03/19/19 13:49 Few 03/19/19 13:49 Not Reportable 03/19/19 13:49 Not Reportable 03/19/19 13:49 Plt Morphology Comment Not Reportable 03/19/19 13:49 RBC Morphology Not Reportable 03/19/19 13:49 Dimorphic RBCs Not Reportable 03/19/19 13:49 1+ 03/19/19 13:49 2+ 03/19/19 13:49 Not Reportable 03/19/19 13:49 2+ 03/19/19 13:49 1+ 03/19/19 13:49 Not Reportable 03/19/19 13:49 Not Reportable 03/19/19 13:49 Not Reportable 03/19/19 13:49 Not Reportable 03/19/19 13:49 Not Reportable 03/19/19 13:49 Few 03/19/19 13:49 Not Reportable 03/19/19 13:49 Rare 03/19/19 13:49 Not Reportable 03/19/19 13:49 Not Reportable 03/19/19 13:49 Not Reportable 03/19/19 13:49 Not Reportable 03/19/19 13:49 Not Reportable 03/19/19 13:49 1+ 03/19/19 13:49 Acanthocytes (Spur) Not Reportable 03/19/19 13:49 Rouleaux Not Reportable 03/19/19 13:49 Not Reportable 03/19/19 13:49 Not Reportable 03/19/19 13:49 Not Reportable 03/19/19 13:49 Percent Retic 10.00 % (0.78-2.58) H 03/19/19 16:52 Not Reportable 03/19/19 13:49 Hem Pathologist Commnt No 03/19/19 13:49 PT 14.4 Sec. (12.2-14.9) 03/19/19 16:52 INR 1.15 (0.87-1.13) H 03/19/19 16:52 APTT 26.1 Sec. (24.2-36.6) 03/19/19 16:52 Sodium 141 mmol/L (137-145) 03/19/19 13:49 Potassium 4.0 mmol/L (3.6-5.0) 03/19/19 13:49 Chloride 104.4 mmol/L (98-107) 03/19/19 13:49 Carbon Dioxide 27 mmol/L (22-30) 03/19/19 13:49 14 mmol/L 03/19/19 13:49 BUN 15 mg/dL (7-17) 03/19/19 13:49 0.7 mg/dL (0.7-1.2) 03/19/19 13:49 Estimated GFR > 60 ml/min 03/19/19 13:49 21 % 03/19/19 13:49 Glucose 103 mg/dL (65-100) H 03/19/19 13:49 Calcium 8.8 mg/dL (8.4-10.2) 03/19/19 13:49 Iron 15 ug/dL (37-170) L 03/19/19 16:52 TIBC 455 mcg/dL (250-450) H 03/19/19 16:52 NT-Pro-B Natriuret Pep 84.26 pg/mL (0-450) 03/19/19 16:52 Vitamin B12 716.9 pg/mL (211-911) 03/19/19 16:52 17.50 ng/mL (7.3-26.0) 03/19/19 16:52 Blood Type A POSITIVE 03/19/19 13:45 Antibody Screen Negative 03/19/19 13:45 Crossmatch See Detail 03/19/19 13:45 Short CBC 03/19/19 Range/Units 13:49 WBC 3.3 L (4.5-11.0) K/mm3 Hgb 4.2 L* (10.1-14.3) gm/dl Hct 14.5 L* (30.3-42.9) % Plt Count 123 L (140-440) K/mm3 BMP 03/19/19 13:49 Sodium 141 Potassium 4.0 Chloride 104.4 Carbon Dioxide 27 BUN 15 Creatinine 0.7 Glucose 103 H Calcium 8.8 - Imaging and Cardiology EKG: report reviewed Assessment and Plan Advance Directives: Yes (Full code) VTE prophylaxis?: Mechanical Plan of care discussed with patient/family: Yes - Patient Problems (1) Symptomatic anemia Current Visit: Yes Status: Acute Plan to address problem: Transfuse 2 to 4 units of PRBC (2) Dysfunctional uterine bleeding Current Visit: Yes Status: Chronic Plan to address problem: Plan Consultant consult for possible Hysterectomy as outpatient (3) Uterine fibroid Current Visit: Yes Status: Chronic Qualifiers: Uterine leiomyoma location: unspecified location Qualified Code(s): D25.9 - Leiomyoma of uterus, unspecified Plan to address problem: Check Ultrasound (4) DVT prophylaxis Current Visit: Yes Status: Acute Plan to address problem: On Scd's and GI prophylaxis
[2019-03-19] MEDS: PEPCID IV SCH (22:26)
[2019-03-19] MEDS: SODIUM CHLORIDE FLUSH SYRINGE 10 ML IV SCH (22:29)
[2019-03-20 09:33] LABS: Hemoglobin 8.7 gm/dl (10.1-14.3); Mean Corpuscular HGB Conc 32 % (30-34); Mean Corpuscular Volume 76 fl (79-97); Platelet Count 123 K/mm3 (140-440); Red Blood Count 3.54 M/mm3 (3.65-5.03)
[2019-03-20 09:34] LABS: Red Cell Distribution Width 29.2 % (13.2-15.2)
--- NOTE | 2019-03-20 09:35 | Ultrasound Report ---
ULTRASOUND PELVIC COMPLETE HISTORY: Uterine fibroids TECHNIQUE: Transabdominal ultrasound with color Doppler imaging FINDINGS: Compared to 03/19/2019. The uterus is anteverted. The uterus measures 11.4 x 6.5 x 6.7 cm. T here appear to be 2 subserosal fibroids in the uterine fundus measuring 2.3 cm anteriorly and 3.1 cm posteriorly. No large submucosal fibroid is identified. The endometrial stripe is unremarkable measur ing 9.5 mm. The cervix is obscured. The right ovary measures 3.0 x 2.7 x 3.2 cm and contains a 1.6 cm cyst. The left ovary measures 4.0 x 2.4 x 2.0 cm and contains a 2.1 cm cyst. No pelvic fluid collection. IMPRESSION: Mild uterine fibroid disease as described. Bilateral simple renal cysts. Signer Name: Dipak Cee Jr, MD Signed: 03/20/2019 9:31 AM Workstation Name: [id number]
[2019-03-20 09:50] LABS: Alanine Aminotransferase 8 units/L (7-56); Albumin 3.7 g/dL (3.9-5); BUN/Creatinine Ratio 20; Blood Urea Nitrogen 12 mg/dL (7-17); Calcium 8.6 mg/dL (8.4-10.2); Hemolysis Index 5
--- NOTE | 2019-03-20 09:52 | Consultation ---
History of Present Illness - Reason for Consult Consult date: 03/20/19 dysfunctional uterine bleeding - History of Present Illness A patient with a history of uterine fibroids and dysfunctional uterine bleeding. She has previously required transfusion. On presentation, the patient is bleeding with a hemoglobin of 4. She is status post transfusion of 2 units with return to her baseline status. The patient was previously been offered hysterectomy but declined. She is interested in uterine fibroid embolization. Past History Past Medical History: other (current fibroids) Social history: no significant social history Family history: no significant family history Medications and Allergies Allergies Allergy/AdvReac Type Severity Reaction Status Date / Time No Known Allergies Allergy Verified 03/19/19 13:22 Home Medications Medication Instructions Recorded Confirmed Last Taken Type Labetalol [Labetalol 200mg TAB] 200 mg PO QDAY 03/19/19 03/19/19 03/16/19 History Active Meds: Active Medications Acetaminophen (Tylenol) 650 mg PO Q4H PRN PRN Reason: Pain MILD(1-3)/Fever >100.5/[place] Famotidine (Pepcid) 20 mg IV BID [facility] Last Admin: 03/19/19 22:26 Dose: 20 mg Documented by: Hydromorphone HCl (Dilaudid) 0.5 mg IV Q3H PRN PRN Reason: Pain , Severe (7-10) Ondansetron HCl (Zofran) 4 mg IV Q8H PRN PRN Reason: Nausea And Vomiting Oxycodone/Acetaminophen (Percocet 5/325) 1 tab PO Q6H PRN PRN Reason: Pain, Moderate (4-6) Sodium Chloride (Sodium Chloride Flush Syringe 10 Ml) 10 ml IV BID [facility] Last Admin: 03/19/19 22:29 Dose: 10 ml Documented by: Sodium Chloride (Sodium Chloride Flush Syringe 10 Ml) 10 ml IV PRN PRN PRN Reason: LINE FLUSH Review of Systems All systems: negative Exam - Constitutional Vitals: Temp Pulse Resp BP Pulse Ox 97.7 F 86 20 177/77 95 03/20/19 05:30 03/20/19 05:30 03/20/19 06:02 03/20/19 06:02 03/20/19 05:30 General appearance: Present: no acute distress - EENT Eyes: Present: PERRL, EOM intact ENT: hearing intact - Neck Neck: Present: supple, normal ROM - Respiratory Respiratory effort: normal - Abdominal General gastrointestinal: Present: deferred Female genitourinary: Present: deferred - Rectal Rectal Exam: deferred - Psychiatric Psychiatric: appropriate mood/affect, cooperative Results - Labs CBC & Chem 7: 03/20/19 09:18 03/19/19 13:49 Labs: Abnormal lab results 03/19/19 03/19/19 03/19/19 Range/Units 13:45 13:49 13:49 WBC 3.3 L (4.5-11.0) K/mm3 RBC 2.24 L (3.65-5.03) M/mm3 Hgb 4.2 L* (10.1-14.3) gm/dl Hct 14.5 L* (30.3-42.9) % MCV 65 L (79-97) fl MCH 19 L (28-32) pg MCHC 29 L (30-34) % RDW 26.9 H (13.2-15.2) % Plt Count 123 L (140-440) K/mm3 Seg Neutrophils % 76.5 H (40.0-70.0) % Lymphocytes % (Manual) 37.0 H (13.4-35.0) % Percent Retic (0.78-2.58) % INR (0.87-1.13) Glucose 103 H (65-100) mg/dL Iron (37-170) ug/dL TIBC (250-450) mcg/dL Crossmatch See Detail 03/19/19 03/19/19 03/19/19 Range/Units 16:52 16:52 16:52 WBC (4.5-11.0) K/mm3 RBC (3.65-5.03) M/mm3 Hgb (10.1-14.3) gm/dl Hct (30.3-42.9) % MCV (79-97) fl MCH (28-32) pg MCHC (30-34) % RDW (13.2-15.2) % Plt Count (140-440) K/mm3 Seg Neutrophils % (40.0-70.0) % Lymphocytes % (Manual) (13.4-35.0) % Percent Retic 10.00 H (0.78-2.58) % INR 1.15 H (0.87-1.13) Glucose (65-100) mg/dL Iron 15 L (37-170) ug/dL TIBC 455 H (250-450) mcg/dL Crossmatch 03/20/19 Range/Units 09:18 WBC (4.5-11.0) K/mm3 RBC 3.54 L (3.65-5.03) M/mm3 Hgb 8.7 L D (10.1-14.3) gm/dl Hct 27.0 L D (30.3-42.9) % MCV 76 L (79-97) fl MCH 25 L (28-32) pg MCHC (30-34) % RDW 29.2 H (13.2-15.2) % Plt Count 123 L (140-440) K/mm3 Seg Neutrophils % (40.0-70.0) % Lymphocytes % (Manual) (13.4-35.0) % Percent Retic (0.78-2.58) % INR (0.87-1.13) Glucose (65-100) mg/dL Iron (37-170) ug/dL TIBC (250-450) mcg/dL Crossmatch Assessment and Plan Patient will need an MRI with and without contrast for further evaluation of her uterine fibroids. Her uterine fibroid embolization may be performed as an outpatient procedure is a patient appears to be stable for discharge. Would like to obtain her MRI while she is in the hospital to accelerate her workup.
[2019-03-20] MEDS: PEPCID IV SCH (10:48)
[2019-03-20] MEDS: SODIUM CHLORIDE FLUSH SYRINGE 10 ML IV SCH (10:48)
[2019-03-20] MEDS: NORMODYNE PO SCH ×2 (10:48→10:56)
[2019-03-20 10:55] LABS: Anisocytosis 3+; Band Neutrophils # (Manual) 0.1 K/mm3; Basophils % (Manual) 0 % (0.0-1.8); Eosinophils % (Manual) 0 % (0.0-4.3); Hypochromasia 1+; Total Cells Counted 100
[2019-03-20 10:56] LABS: Platelet Estimate Consistent w Auto
[2019-03-20 10:57] VITALS: BP 152/88
--- NOTE | 2019-03-20 12:11 | Consultation ---
History of Present Illness Consult date: 03/20/19 Requesting physician: KARMEN LOPEZ Reason for consult: menorrhagia Past History - Obstetrical History : 4 Medications and Allergies Allergies Allergy/AdvReac Type Severity Reaction Status Date / Time No Known Allergies Allergy Verified 03/19/19 13:22 Home Medications Medication Instructions Recorded Confirmed Last Taken Type Labetalol [Labetalol 200mg TAB] 200 mg PO QDAY 03/19/19 03/19/19 03/16/19 History Active Meds: Active Medications Acetaminophen (Tylenol) 650 mg PO Q4H PRN PRN Reason: Pain MILD(1-3)/Fever >100.5/[place] Famotidine (Pepcid) 20 mg IV BID [facility] Last Admin: 03/20/19 10:48 Dose: 20 mg Documented by: Hydromorphone HCl (Dilaudid) 0.5 mg IV Q3H PRN PRN Reason: Pain , Severe (7-10) Labetalol HCl (Normodyne) 200 mg PO QDAY [facility] Last Admin: 03/20/19 10:56 Dose: 200 mg Documented by: Ondansetron HCl (Zofran) 4 mg IV Q8H PRN PRN Reason: Nausea And Vomiting Oxycodone/Acetaminophen (Percocet 5/325) 1 tab PO Q6H PRN PRN Reason: Pain, Moderate (4-6) Sodium Chloride (Sodium Chloride Flush Syringe 10 Ml) 10 ml IV BID [facility] Last Admin: 03/20/19 10:48 Dose: 10 ml Documented by: Sodium Chloride (Sodium Chloride Flush Syringe 10 Ml) 10 ml IV PRN PRN PRN Reason: LINE FLUSH - Vital Signs Vital signs: Vital Signs Temp Pulse Resp BP Pulse Ox 97.9 F 104 H 18 127/72 100 03/19/19 13:24 03/19/19 13:24 03/19/19 13:24 03/19/19 13:24 03/19/19 13:24 Temp Pulse Resp BP Pulse Ox 97.7 F 79 20 152/88 95 03/20/19 05:30 03/20/19 10:56 03/20/19 06:02 03/20/19 10:56 03/20/19 05:30 Results Result Diagrams: 03/20/19 09:18 03/20/19 09:18 Abnormal lab results 03/19/19 03/19/19 03/19/19 Range/Units 13:45 13:49 13:49 WBC 3.3 L (4.5-11.0) K/mm3 RBC 2.24 L (3.65-5.03) M/mm3 Hgb 4.2 L* (10.1-14.3) gm/dl Hct 14.5 L* (30.3-42.9) % MCV 65 L (79-97) fl MCH 19 L (28-32) pg MCHC 29 L (30-34) % RDW 26.9 H (13.2-15.2) % Plt Count 123 L (140-440) K/mm3 Seg Neutrophils % 76.5 H (40.0-70.0) % Seg Neuts % (Manual) (40.0-70.0) % Lymphocytes % (Manual) 37.0 H (13.4-35.0) % Lymphocytes # (Manual) (1.2-5.4) K/mm3 Percent Retic (0.78-2.58) % INR (0.87-1.13) Creatinine (0.7-1.2) mg/dL Glucose 103 H (65-100) mg/dL Iron (37-170) ug/dL TIBC (250-450) mcg/dL Total Bilirubin (0.1-1.2) mg/dL Alkaline Phosphatase (35-129) units/L Albumin (3.9-5) g/dL Crossmatch See Detail 03/19/19 03/19/19 03/19/19 Range/Units 16:52 16:52 16:52 WBC (4.5-11.0) K/mm3 RBC (3.65-5.03) M/mm3 Hgb (10.1-14.3) gm/dl Hct (30.3-42.9) % MCV (79-97) fl MCH (28-32) pg MCHC (30-34) % RDW (13.2-15.2) % Plt Count (140-440) K/mm3 Seg Neutrophils % (40.0-70.0) % Seg Neuts % (Manual) (40.0-70.0) % Lymphocytes % (Manual) (13.4-35.0) % Lymphocytes # (Manual) (1.2-5.4) K/mm3 Percent Retic 10.00 H (0.78-2.58) % INR 1.15 H (0.87-1.13) Creatinine (0.7-1.2) mg/dL Glucose (65-100) mg/dL Iron 15 L (37-170) ug/dL TIBC 455 H (250-450) mcg/dL Total Bilirubin (0.1-1.2) mg/dL Alkaline Phosphatase (35-129) units/L Albumin (3.9-5) g/dL Crossmatch 03/20/19 03/20/19 Range/Units 09:18 09:18 WBC (4.5-11.0) K/mm3 RBC 3.54 L (3.65-5.03) M/mm3 Hgb 8.7 L D (10.1-14.3) gm/dl Hct 27.0 L D (30.3-42.9) % MCV 76 L (79-97) fl MCH 25 L (28-32) pg MCHC (30-34) % RDW 29.2 H (13.2-15.2) % Plt Count 123 L (140-440) K/mm3 Seg Neutrophils % (40.0-70.0) % Seg Neuts % (Manual) 79.0 H (40.0-70.0) % Lymphocytes % (Manual) 13.0 L (13.4-35.0) % Lymphocytes # (Manual) 0.8 L (1.2-5.4) K/mm3 Percent Retic (0.78-2.58) % INR (0.87-1.13) Creatinine 0.6 L (0.7-1.2) mg/dL Glucose 107 H (65-100) mg/dL Iron (37-170) ug/dL TIBC (250-450) mcg/dL Total Bilirubin 2.90 H (0.1-1.2) mg/dL Alkaline Phosphatase 33 L (35-129) units/L Albumin 3.7 L (3.9-5) g/dL Crossmatch All other labs normal. Assessment and Plan A/P menorrhagia/DUB uterine fibroids small subserosal severe anemia Agree with blood transfusion will discussed with patient and she is f/u for evaluation for possible hysterectomy will executive assistant to general counsel concerning uterine fibroid embolization vs Hysterectomy
--- NOTE | 2019-03-20 12:56 | Discharge Summary ---
Providers - Providers Date of Admission: 03/19/19 18:04 Date of discharge: 03/20/19 Attending physician: NALLELY STODDARD 03/19/19 21:46 Consult to Physician [CONS] Routine Comment: Consulting Provider: JUANCHO BANDA Physician Instructions: Reason For Exam: menorrhagia 03/20/19 01:21 Consult to Physician [CONS] Routine Comment: Consulting Provider: GREGG NÚÑEZ Physician Instructions: Uterine artery embolization?? Reason For Exam: Uterine Fibroids Primary care physician: SNEHAL VAIL Hospitalization Condition: Stable Hospital course: Discharge diagnosis: (1) Symptomatic anemia Current Visit: Yes Status: Acute Plan to address problem: Transfuse 2 to 4 units of PRBC (2) Dysfunctional uterine bleeding Current Visit: Yes Status: Chronic Plan to address problem: Supercalender Operator consult for possible Hysterectomy as outpatient (3) Uterine fibroid Current Visit: Yes Status: Chronic Qualifiers: Uterine leiomyoma location: unspecified location Qualified Code(s): D25.9 - Leiomyoma of uterus, unspecified Plan to address problem: Check Ultrasound (4) DVT prophylaxis Current Visit: Yes Status: Acute Plan to address problem: On Scd's and GI prophylaxis Disposition: DC-01 TO HOME OR SELFCARE Time spent for discharge: 34 minutes Core Measure Documentation - Palliative Care Palliative Care/ Comfort Measures: Not Applicable - Core Measures Any of the following diagnoses?: none Exam - Constitutional Vitals: Temp Pulse Resp BP Pulse Ox 97.7 F 79 20 152/88 95 03/20/19 05:30 03/20/19 10:56 03/20/19 06:02 03/20/19 10:56 03/20/19 05:30 General appearance: Present: no acute distress, obese - EENT Eyes: Present: PERRL ENT: hearing intact, clear oral mucosa - Neck Neck: Present: supple, normal ROM - Respiratory Respiratory effort: normal Respiratory: bilateral: CTA - Cardiovascular Heart Sounds: Present: S1 & S2. Absent: rub, click - Extremities Extremities: pulses symmetrical, No edema Peripheral Pulses: within normal limits - Abdominal General gastrointestinal: Present: soft, non-tender, non-distended, normal bowel sounds - Integumentary Integumentary: Present: clear, warm, dry - Musculoskeletal Musculoskeletal: gait normal, strength equal bilaterally - Psychiatric Psychiatric: appropriate mood/affect, intact judgment & insight - Neurologic Neurologic: CNII-XII intact, moves all extremities Plan Activity: advance as tolerated Weight Bearing Status: Weight Bear as Tolerated Diet: low fat, low salt Follow up with: PRIMARY CARE, [Referring] - 3-5 Days GREGG LANGE MD [Staff Physician] - 7 Days
--- NOTE | 2019-03-20 14:31 | Magnetic Resonance Report ---
MR PELVIS WITH AND WITHOUT CONTRAST HISTORY: Dysfunctional uterine bleeding TECHNIQUE: Multisequence, multiplanar MRI before and after IV gadolinium. COMPARISON: Pelvic ultrasound dated 03/19/2019. FINDINGS: The uterus is anteverted. The uterus is mildly enlarged measuring 13.4 x 6.8 x 6.8 cm on MRI. Only on e subserosal fibroid is identified on MRI in the left lateral wall near the uterine fundus measuring 2.1 x 2.1 x 2.9 cm. No obvious fibroids are identified in the anterior and posterior uterine fundus a s suggested on recent ultrasound. There is certainly no large submucosal fibroid. The endometrial stripe measures 12 mm. Following IV contrast, there is suggestion of a 1.2 cm focus o f enhancement within the endometrium near the uterine fundus. The etiology of this is unclear but thi s may represent an endometrial polyp. The ovaries are normal size, contour and position. A 1.6 cm right ovarian cyst is identified. The visualized bowel loops in the pelvis and bladder are unremarkable. The vascular structures are pa tent. The bony pelvis is unremarkable. No evidence for ascites, adenopathy or inflammatory changes. IMPRESSION: Minimal uterine fibroid disease as described. The endometrium measures 12 mm on MRI. There is suggestion of a 1.2 cm focus of enhancement in the en dometrium near the uterine fundus as described. Signer Name: Dipak Cee Jr, MD Signed: 03/20/2019 2:27 PM Workstation Name: [id number]
[2019-03-20 14:33] LABS: Hematocrit 26.6 % (30.3-42.9); Hemoglobin 8.4 gm/dl (10.1-14.3)
== END 2019-03-20 16:30 | disposition home or self-care (01) ==
LOC: ED 13:18 → 3A 18:04 → INTOOBSV 18:04
PROVIDERS: ADMIT Internal Medicine; ATTEND Internal Medicine
DX: D25.9 Leiomyoma of uterus, unspecified (principal); D64.9 Anemia, unspecified; N93.8 Other specified abnormal uterine and vaginal bleeding
CPT/HCPCS: 36415; 36430; 72197; 76856; 80048; 80053; 82607; 82747; 83036; 83550; 83880; 85007; 85014; 85018; 85025; 85045; 85610; 85730; 86850; 86900; 86901; 86920; 87116; 96374; 96375; 96376; 99285; A9577; G0378; J7040; P9016